=== PATIENT | male | born 1950 | race Two or more races ===

== ENCOUNTER → 2016-11-22 | Outpatient (CLI) | payer MEDICARE ==
[~2016-11-22] MED LIST: ASPI-630 PO; ATOR20TA PO; CHOL20002 PO; ESOM40CA PO; EVENING PRIMROSE OIL; FISH1CAP PO; FOLI20CA PO; FURO-68 PO; GLIM2TAB PO; IRBE150T PO; LORA-434 PO; MAGN100T3 PO; METF500T4 PO; PREDNIZONE; RANI25VI IJ; RANI50VI5 IJ; SITA100T PO; TURMERIC; [UNRECOGNIZED DRUG - OTHER]
--- NOTE | 2016-11-23 08:23 | RAD ---
Left lower extremity venous Doppler 11/22/2016 Indication: Left leg pain and swelling Comparison: None available Technique: Sonographic evaluation of the left lower extremity venous system was performed utilizing grayscale, color Doppler and spectral waveform analysis. Findings: Common femoral vein: Normal compressibility and venous waveform. No filling defect to suggest thrombus. Contralateral common femoral vein is patent. Superficial femoral vein: Normal compressibility and venous waveform. No filling defect to suggest thrombus. Popliteal vein: Normal compressibility and venous waveform. No filling defect to suggest thrombus. Posterior tibial vein: Normal compressibility and venous waveform. No filling defect to suggest thrombus. Greater saphenous vein: Normal compressibility and venous waveform. No filling defect to suggest thrombus. Impression: No sonographic evidence to suggest left lower extremity venous thrombosis.
== END | disposition home or self-care (01) ==
LOC: US 15:51
PROVIDERS: ATTEND Family Medicine
DX: M79.662 Pain in left lower leg (principal); M79.89 Other specified soft tissue disorders
CPT/HCPCS: 93971

== ENCOUNTER → 2018-07-03 | Outpatient (CLI) | payer MEDICARE ==
[~2018-07-03] MED LIST changes: +IOHEXOL 240 MG/ML 50ML VIAL. PO ONE; +LORA-254 PO; -LORA-434 PO; +METF500T16 PO; -METF500T4 PO
[2018-07-03 17:41] LABS: BACTERIA,URINE 0 /HPF (0-FEW); BASO % 1 % (0-3); BILIRUBIN,URINE NEG (NEG); CALCIUM 9.5 mg/dL (8.5-10.1); CLARITY,URINE CLEAR; COLOR,URINE YELLOW; CREATININE 1.3 mg/dL (0.7-1.3); EOS # 0.2 x10^3/uL (0.0-0.7); EOS % 3 % (0-3); GFR 55.1; GLUCOSE,URINE >=1000 mg/dL (NEG); HEMATOCRIT 45.8 % (39.0-53.0); HEMOGLOBIN 15.4 g/dL (13.0-17.5); LYMPH # 3.1 x10^3/uL (1.0-4.8); LYMPH % 41 % (24-48); MEAN CORPUSCULAR HEMOGLOBIN 30 pg (25-35); MEAN CORPUSCULAR HGB CONC 34 g/dL (31-37); MEAN CORPUSCULAR VOLUME 89 fL (79-100); MONO # 0.6 x10^3/uL (0.0-1.1); MONO % 8 % (0-9); NEUT # 3.7 x10^3uL (1.8-7.7); NEUT % 48 % (31-73); NITRITE,URINE NEG (NEG); PLATELET COUNT 166 x10^3/uL (140-400); RBC,URINE 0 /HPF (0-2); RED BLOOD COUNT 5.14 x10^6/uL (4.30-5.70); RED CELL DISTRIBUTION WIDTH 13.9 % (11.5-14.5); TOTAL BILIRUBIN 0.4 mg/dL (0.2-1.0); TOTAL PROTEIN 7.9 g/dL (6.4-8.2); UROBILINOGEN,URINE 0.2 mg/dL (0.2 mg/dL); WBC,URINE 0 /HPF (0-4); WHITE BLOOD COUNT 7.6 x10^3/uL (4.0-11.0)
--- NOTE | 2018-07-03 17:53 | RAD ---
Abdominal and Pelvis CT, Without Contrast: History: Right lower quadrant bowel pain bloating possible obstruction. Comparison: None. Procedure: Axial images are obtained of the abdomen and pelvis, with oral contrast only. CT Abdomen without Contrast: Findings: Evaluation of solid organs is limited without contrast. Liver: Normal. Spleen: Normal. Pancreas: Normal. Adrenal Glands: Normal. Kidneys: Normal. There is no free air or free fluid. There is no lymphadenopathy. Impression: Please see CT Pelvis without Contrast. End Impression. CT Pelvis without Contrast: Findings: The urinary bladder appears normal. There is no free fluid. There is no lymphadenopathy. There is fat-containing no bowel hernias bilaterally. The appendix is normal. The prostate is not significantly enlarged. Impression: No acute findings. PQRS Compliance Statement: One or more of the following individualized dose reduction techniques were utilized for this examination: 1. Automated exposure control 2. Adjustment of the mA and/or kV according to patient size 3. Use of iterative reconstruction technique Electronically signed by: Shantanu Duron III, MD (07/03/2018 5:50 PM) [facility]
== END | disposition home or self-care (01) ==
LOC: LAB 15:58
PROVIDERS: ATTEND Family Medicine
DX: R10.31 Right lower quadrant pain (principal)
CPT/HCPCS: 36415; 74176; 80053; 81001; 82150; 83690; 85025; Q9966

== ENCOUNTER → 2019-03-23 | Outpatient (CLI) | payer MEDICARE ==
[~2019-03-23] VITALS: Ht 167.6 cm; Wt 67.1 kg
[~2019-03-23] MED LIST changes: -IOHEXOL 240 MG/ML 50ML VIAL. PO ONE; -RANI25VI IJ; +RANI25VI2 IJ
[2019-03-23 17:26] VITALS: BP 151/78
[2019-03-23 17:27] VITALS: BP 148/73
[2019-03-23 18:24] LABS: BACTERIA,URINE 0 /HPF (0-FEW); BILIRUBIN,URINE NEG (NEG); CLARITY,URINE CLEAR; COLOR,URINE YELLOW; GLUCOSE,URINE NEG (NEG); NITRITE,URINE NEG (NEG); RBC,URINE RARE /HPF (0-2); UROBILINOGEN,URINE 0.2 mg/dL (0.2 mg/dL); WBC,URINE OCC /HPF (0-4)
== END | disposition home or self-care (01) ==
LOC: US 15:44
PROVIDERS: ATTEND Family Medicine
DX: R35.1 Nocturia (principal)
CPT/HCPCS: 81001